=== PATIENT | female | born 1995 | race Caucasian/White ===

== ENCOUNTER 2018-07-23 19:38 | Emergency (ER) | payer OTHER ==
--- NOTE | 2018-07-23 19:57 | PDOC ---
History of Present Illness - General History Source: Patient Exam Limitations: No Limitations - History of Present Illness Initial Comments: 07/23/18 20:30 The patient is a 22 year old female with no significant past medical history who presents to the ED with complaints of an abscess. The patient states she developed an abscess between her anus and vagina 3 days ago. She reports intermittent pain associated with the abscess that is worsened with movement. She also states she squeezed the abscess and noticed that there was beige colored pus. Patient reports a similar episode 2 years ago she had an abscess in the same location and it needed to be drained. Patient states her last menstrual period was 2 months ago, but she states this is normal for her. She is currently on control. Denies fever or chills. Denies nausea, vomiting, or diarrhea. Denies dysuria, hematuria or change in urinary output. Denies any other symptoms. <Matias Coronel - Last Filed: 07/23/18 23:33> <Mirlande Franklin - Last Filed: 07/24/18 04:18> - General Chief Complaint: Abscess Boil Stated Complaint: ABSCESS Time Seen by Provider: 07/23/18 19:40 Past History <Matias Coronel - Last Filed: 07/23/18 23:33> - Immunization History Immunization Up to Date: Yes - Suicide/Smoking/Psychosocial Hx Smoking History: Never smoked <Mirlande Franklin - Last Filed: 07/24/18 04:18> - Past Medical History Allergies/Adverse Reactions: Allergies Allergy/AdvReac Type Severity Reaction Status Date / Time No Known Drug Allergies Allergy Verified 10/01/16 16:28 lobster Allergy Uncoded 10/01/16 16:28 Home Medications: Ambulatory Orders Amox-Tr/K Cl [Augmentin - 875Mg Tablet] 1 tab PO BID #14 tablet 07/23/18 Norethindrone-E.estradiol-Iron [Microgestin Fe 1-20 Tablet] 1 each PO DAILY Review of Systems - Review of Systems Able to Perform ROS?: Yes Comments:: 07/23/18 20:31 CONSTITUTIONAL: Absent: fever, chills, diaphoresis, generalized weakness, malaise, loss of appetite HEENT: Absent: rhinorrhea, nasal congestion, throat pain, throat swelling, difficulty swallowing, mouth swelling, ear pain, eye pain, visual Changes CARDIOVASCULAR: Absent: chest pain, syncope, palpitations, irregular heart rate, lightheadedness , peripheral edema RESPIRATORY: Absent: cough, shortness of breath, dyspnea with exertion, orthopnea, wheezing, stridor, hemoptysis GASTROINTESTINAL: Absent: abdominal pain, abdominal distension, nausea, vomiting, diarrhea, constipation, melena, hematochezia GENITOURINARY: +genital abscess Absent: dysuria, frequency, urgency, hesitancy, hematuria, flank pain, genital pain MUSCULOSKELETAL: Absent: myalgia, arthralgia, joint swelling SKIN: Absent: rash, itching, pallor HEMATOLOGIC/IMMUNOLOGIC: Absent: easy bleeding, easy bruising, lymphadenopathy, frequent infections ENDOCRINE: Absent: unexplained weight gain, unexplained weight loss, heat intolerance, cold intolerance NEUROLOGIC: Absent: headache, focal weakness or paresthesias, dizziness, unsteady gait, seizure, mental status changes, bladder or bowel incontinence PSYCHIATRIC: Absent: anxiety, depression, suicidal or homicidal ideation, hallucinations. All Other Systems: Reviewed and Negative <Matias Coronel - Last Filed: 07/23/18 23:33> *Physical Exam - Vital Signs Last Vital Signs Temp Pulse Resp BP Pulse Ox 98.8 F 65 16 119/84 100 07/23/18 19:39 07/23/18 19:39 07/23/18 19:39 07/23/18 19:39 07/23/18 19:39 - Physical Exam Comments: 07/23/18 20:31 GENERAL: The patient is awake, alert, and fully oriented, in no acute distress. HEAD:[Normal with no signs of trauma. EYES: Pupils equal, round and reactive to light, extraocular movements intact, sclera anicteric, conjunctiva clear. EXTREMITIES: Normal range of motion, no edema. GENITALIA: + normal external genitalia. 2cm x 2cm mildly edematous, mildly erythematous area of the posterior left external labia, 0.5 cm firm central region, moderately tender. No fluctuance, no discharge evident. NEUROLOGICAL: Normal speech, normal gait. PSYCH: Normal mood, normal affect. SKIN: Warm, Dry, normal turgor, no rashes or lesions noted. <Matias Coronel - Last Filed: 07/23/18 23:33> Progress Note - Progress Note Progress Note: Documentation has been prepared under my direction and personally reviewed by me in its entirety. I attest that this documented accurately reflects all work, treatment, procedures and medical decision making performed by me. <Mirlande Franklin - Last Filed: 07/24/18 04:18> Medical Decision Making - Medical Decision Making As noted above, this otherwise healthy 22-year-old woman presents with a few day history of painful swelling in the left perineal area. It is the exact area where she had an abscess drained 2 years ago. Although the patient states that she has drained a small amount of matthews pus from the area when she attempted to squeeze it, exam reveals no evidence of pustule or fluctuance in the area of tenderness. It is, however, erythematous, slightly swollen and moderately tender. The patient has been advised to warm pack the area and begin Augmentin 875/125 twice a day. She should return to the ER if she has increasing swelling/pain/ discharge. <Mirlande Franklin - Last Filed: 07/24/18 04:18> *DC/Admit/Observation/Transfer - Attestations Scribe Attestion: 07/23/18 20:31 Documentation prepared by Matias Coronel, acting as medical laboratory assistant for Mirlande Franklin MD <Matias Coronel - Last Filed: 07/23/18 23:33> <Mirlande Franklin - Last Filed: 07/24/18 04:18> Diagnosis at time of Disposition: Abscess of skin Qualifiers: Site of cutaneous abscess: trunk Site of cutaneous abscess of trunk: groin Qualified Code(s): L02.214 - Cutaneous abscess of groin - Discharge Dispostion Disposition: HOME Condition at time of disposition: Stable - Prescriptions Prescriptions: Amox-Tr/K Cl [Augmentin - 875Mg Tablet] 1 tab PO BID #14 tablet - Referrals Referrals: Sylvie Varela MD [Primary Care Provider] - - Patient Instructions Printed Discharge Instructions: DI for Skin Abscess Additional Instructions: warm compresses to area at least 3 times a day for the next 5 days Augmentin 875/125 twice a day with meals for 1 week return or see your doctor if area becomes more painful/swollen or drains pus - Post Discharge Activity
[2018-07-23 20:06] VITALS: BP 119/84; PULSE 65; TEMP 98.8; BMI 25.7
== END 2018-07-23 20:34 | disposition home or self-care (01) ==
LOC: FER 19:38
DX: L02.214 Cutaneous abscess of groin (principal)
CPT/HCPCS: 99281-25

== ENCOUNTER 2023-01-04 18:01 | Emergency (ER) | payer BC, OTHER ==
[2023-01-04 18:24] VITALS: BP 148/87; PULSE 94; RESP 20; TEMP 98.3; BMI 28.3
[2023-01-04] MEDS ORDERED: RABIES IMMUNE GLOBULIN 300 UNITS/1 ML VIAL IM ONE (18:55)
[2023-01-04] MEDS ORDERED: RABIES VACCINE (PCEC)/PF 2.5 UNIT/VIAL IM ONE (18:55)
[2023-01-04] MEDS ORDERED: DIPHTH,PERTUSS(ACELL),TET 0.5 ML DISP.SYRIN IM ONE ×2 (20:48→20:50)
== END 2023-01-04 21:00 | disposition home or self-care (01) ==
LOC: FER 18:01
PROC: 3E0234Z Introduction of Serum, Toxoid and Vaccine into Muscle, Percutaneous Approach (ICD-10-PCS; principal; 2023-01-04)
DX: S51.852A Open bite of left forearm, initial encounter (principal); W54.0XXA Bitten by dog, initial encounter; Y92.838 Other recreation area as the place of occurrence of the external cause
CPT/HCPCS: 90715; 99284-25